=== PATIENT | male | born 1985 | race Caucasian/White ===

== ENCOUNTER 2017-03-12 11:38 | Emergency (ER) | payer OTHER, SELFPAY ==
[~2017-03-12] VITALS: Ht 167.6 cm; Wt 97.7 kg
--- NOTE | 2017-03-12 13:44 | REP ---
Left forearm two views : There is no fracture or dislocation. Mineralization and joint spaces are normal. There are no calcifications or foreign bodies. Impression: Negative left forearm . Signed by Srinath Betancourt MD 03/12/2017 01:36 P
[2017-03-12] MEDS ORDERED: IBUP-1022 PO (13:59)
[2017-03-12 14:10] VITALS: BP 156/80
== END 2017-03-12 14:13 | disposition home or self-care (01) ==
LOC: M ED 12:39
DX: S63.502A Unspecified sprain of left wrist, initial encounter (principal); X50.9XXA Other and unspecified overexertion or strenuous movements or postures, initial encounter; Y92.89 Other specified places as the place of occurrence of the external cause; Y93.89 Activity, other specified; Y99.0 Civilian activity done for income or pay; J45.909 Unspecified asthma, uncomplicated; Z88.0 Allergy status to penicillin; Z87.891 Personal history of nicotine dependence

== ENCOUNTER 2017-12-30 05:16 | Emergency (ER) | payer SELFPAY, OTHER ==
[2017-12-30] MEDS: ONDANSETRON 4MG/2ML VIAL (J2405) IV (07:23)
[2017-12-30] MEDS: KETOROLAC 30 MG/ML VIAL (J1885) IV (07:23)
[2017-12-30] MEDS: NS 1,000 ML IV (07:23)
[2017-12-30 08:05] LABS: BASO # 0.1 10^3/uL (0.0-0.2); BASO % 0.5 % (0.0-1.0); EOS # 0.1 10^3/uL (0.0-0.50); EOS % 0.6 % (0.0-3.0); HEMOGLOBIN 14.4 g/dl (13.5-17.5); IMMATURE GRANULOCYTE % 0.8 % (0-3.0); LYMPH # 0.9 10^3/uL (1.5-4.5); LYMPH % 9.2 % (24.0-44.0); MEAN CORPUSCULAR HEMOGLOBIN 31.2 pg (27.0-33.0); MEAN CORPUSCULAR HGB CONC 33.5 g/dl (32.0-36.5); MEAN CORPUSCULAR VOLUME 93.1 fl (80.0-96.0); MONO # 0.5 10^3/uL (0.0-0.8); NEUTROPHILS # 8.3 10^3/uL (1.8-7.7); NEUTROPHILS % 83.9 % (36.0-66.0); PLATELET COUNT, AUTOMATED 279 10^3/uL (150-450); RED BLOOD COUNT 4.62 10^6/uL (4.30-6.10); WHITE BLOOD COUNT 9.9 10^3/uL (4.0-10.0)
[2017-12-30 08:34] LABS: ALBUMIN/GLOBULIN RATIO 1.21 (1.00-1.93); ALKALINE PHOSPHATASE 105 U/L (45-117); ALT/SGPT 28 U/L (12-78); ANION GAP 10 MEQ/L (8-16); AST/SGOT 14 U/L (7-37); BILIRUBIN,DIRECT 0.2 MG/DL (0.0-0.2); BILIRUBIN,TOTAL 0.5 MG/DL (0.2-1.0); BLOOD UREA NITROGEN 17 MG/DL (7-18); CALCIUM LEVEL 9.4 MG/DL (8.5-10.1); CARBON DIOXIDE LEVEL 28 MEQ/L (21-32); CHLORIDE LEVEL 105 MEQ/L (98-107); CREATININE FOR GFR 1.18 MG/DL (0.70-1.30); GLOMERULAR FILTRATION RATE > 60.0 (>60); GLUCOSE, FASTING 129 MG/DL (70-100); POTASSIUM SERUM 3.9 MEQ/L (3.5-5.1); SODIUM LEVEL 143 MEQ/L (136-145); TOTAL PROTEIN 7.3 GM/DL (6.4-8.2)
[2017-12-30 09:18] LABS: KETONE, URINE AUTO RFX TRACE mg/dL (NEGATIVE); LEUKOCYTE ESTERASE UR AUTO RFX NEGATIVE (NEGATIVE); MUCUS, URINE RFX SMALL (NEGATIVE); NITRITE, URINE AUTO RFX NEGATIVE (NEGATIVE); RBC, URINE AUTO RFX 49 /HPF (0-3); SPECIFIC GRAVITY UR AUTO RFX 1.016 (1.002-1.035); SQUAM EPITHELIAL CELL UR AURFX 0 /HPF (0-6); WBC, URINE AUTO RFX 6 /HPF (0-3)
== END 2017-12-30 10:35 | disposition home or self-care (01) ==
LOC: M ED 05:16
DX: N20.1 Calculus of ureter (principal); N13.30 Unspecified hydronephrosis; F17.200 Nicotine dependence, unspecified, uncomplicated; Z88.0 Allergy status to penicillin; Z87.442 Personal history of urinary calculi
CPT/HCPCS: J2405

== ENCOUNTER → 2019-06-16 | Outpatient (REF) | payer OTHER, SELFPAY ==
[~2019-06-16] MED LIST: FLOM0.4C39 PO; HYDR-3715 PO; IBUP-1022 PO; ZOFR4TAB14 PO
== END ==
LOC: M SFHCLERA 15:36
PROVIDERS: ATTEND Nurse Practitioner Family
DX: J00 Acute nasopharyngitis [common cold] (principal)